=== PATIENT | male | born 1985 | race Caucasian/White ===

== ENCOUNTER 2017-02-02 15:20 | Emergency (ER) | payer OTHER ==
--- NOTE | 2017-02-02 16:43 | ER Document Report ---
ED Cardiac - General Chief Complaint: Chest Pain Stated Complaint: CHEST PAIN,LEFT ARM PAIN,DIZZY Time Seen by Provider: 02/02/17 16:41 Notes: The patient is a 31-year-old male, past medical history current smoker, bipolar , presents with 8 months of intermittent left anterior chest wall pain is worse when he wakes up or when he extends his shoulders. He recently obtained insurance and his family members told him to go to the emergency room multiple times over the past several months. Patient denies any current chest pain. In addition, over several months, he is having intermittent lightheadedness and notices a small amount of blood in his stool when he has hard bowel movements. He does not have any lightheadedness or blood in stool at this time. He also will feel a cramping sensation in his left arm that is not related to chest pain. He denies fevers, current chest pain, shortness of breath, leg swelling, hemoptysis, back pain, nausea, vomiting, leg swelling or abdominal pain. TRAVEL OUTSIDE OF THE [place] IN LAST 30 DAYS: No - Related Data Allergies/Adverse Reactions: No Known Allergies Allergy (Verified 02/02/17 15:23) Past Medical History - General Information source: Patient - Social History Smoking Status: Current Every Day Smoker Chew tobacco use (# tins/day): No Drug Abuse: None Family History: Reviewed & Not Pertinent Patient has suicidal ideation: No Patient has homicidal ideation: No Renal/ Medical History: Denies: Hx Peritoneal Dialysis Psychiatric Medical History: Reports: Hx Attention Deficit Hyperactivity Disorder, Hx Bipolar Disorder - Immunizations Hx Diphtheria, Pertussis, Tetanus Vaccination: Yes Review of Systems - Review of Systems Notes: REVIEW OF SYSTEMS: CONSTITUTIONAL: -fevers, -chills EENT: -eye pain, -difficulty swallowing, -nasal congestion CARDIOVASCULAR: +chest pain, -syncope. RESPIRATORY: -cough, -SOB GASTROINTESTINAL: -abdominal pain, -nausea, -vomiting, -diarrhea GENITOURINARY: -dysuria, -hematuria MUSCULOSKELETAL: -back pain, -neck pain SKIN: -rash or skin lesions. HEMATOLOGIC: -easy bruising or bleeding. LYMPHATIC: -swollen, enlarged glands. NEUROLOGICAL: -altered mental status or loss of consciousness, -headache, - neurologic symptoms PSYCHIATRIC: -anxiety, -depression. ALL OTHER SYSTEMS REVIEWED AND NEGATIVE. Physical Exam - Vital signs Vitals: Temp Pulse Resp BP Pulse Ox 97.8 F 81 20 175/125 H 98 02/02/17 15:39 02/02/17 15:39 02/02/17 15:39 02/02/17 15:39 02/02/17 15:39 - Notes Notes: PHYSICAL EXAMINATION: GENERAL: Well-appearing, well-nourished and in no acute distress. HEAD: Atraumatic, normocephalic. EYES: Pupils equal round and reactive to light, extraocular movements intact, sclera anicteric, conjunctiva are normal. ENT: nares patent, oropharynx clear without exudates. Moist mucous membranes. NECK: Normal range of motion, supple without lymphadenopathy LUNGS: Breath sounds clear to auscultation bilaterally and equal. No wheezes rales or rhonchi. HEART: Regular rate and rhythm without murmurs. Tenderness over left anterior lower chest wall. ABDOMEN: Soft, nontender, normoactive bowel sounds. No guarding, no rebound. No masses appreciated. EXTREMITIES: Normal range of motion, no pitting or edema. No cyanosis. NEUROLOGICAL: Cranial nerves grossly intact. Normal speech, normal gait. Normal sensory, motor, and reflex exams. PSYCH: Normal mood, normal affect. SKIN: Warm, Dry, normal turgor, no rashes or lesions noted. Course - Re-evaluation Re-evalutation: Pt has HEART score of 3. 2 sets of troponins are 0.04. His EKG shows lateral T- wave inversions. Chest pain-free and his symptoms are atypical for ACS. Symptoms also atypical for PE and aortic dissection. 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 Given strict return precautions and he understands. - Vital Signs Vital signs: Temp Pulse Resp BP Pulse Ox 97.8 F 59 L 13 144/97 H 98 02/02/17 15:41 02/02/17 15:41 02/02/17 18:01 02/02/17 18:01 02/02/17 18:01 - Laboratory Result Diagrams: 02/02/17 17:15 02/02/17 17:15 Laboratory results interpreted by me: 02/02/17 17:15 NT-Pro-B Natriuret Pep 1020 H - Diagnostic Test Radiology reviewed: Image reviewed, Reports reviewed - EKG Interpretation by Me EKG shows normal: Sinus rhythm, [place], Intervals [place]/QRS: IVCD Voltage: Consistant with LVH Additional EKG results interpreted by me: Lateral T-wave inversions Discharge - Discharge Clinical Impression: Chest pain Qualifiers: Chest pain type: unspecified Qualified Code(s): R07.9 - Chest pain, unspecified Condition: Good Disposition: HOME, SELF-CARE Additional Instructions: Your EKG is not normal, but you have no evidence of an active heart attack at this time. You must follow-up with the primary care physician for further evaluation and treatment. CHEST PAIN OF UNCLEAR CAUSE: The exact cause of your chest pain isn't clear. Fortunately, there is no evidence of a dangerous medical condition. Further testing may be required to find the source of the pain. Most often, we find that this pain is coming from the chest wall -- the muscles or rib joints in the chest. But chest pain can come from the lung and lung lining, the esophagus, the heart valves or heart lining, and even the stomach or gallbladder. Rest. Eat lightly until the pain is gone. We may prescribe medicine for pain and inflammation. You should call the physician immediately if the pain radiates to the shoulder, jaw or arms; if you start to run a fever or develop a cough; or if you develop shortness of breath, or other new or alarming symptoms. NORMAL EXAM AND WORKUP: At this time, your examination and workup show no significant abnormality. No significant abnormal physical findings were noted. All laboratory, EKG, and imaging (x-ray, CT scans, ultrasound) studies that were ordered show no significant abnormality. Although your examination and all studies that were ordered showed no significant abnormal finding, there are no examinations and no studies that are 100% accurate. There is always the possibility that some abnormality could exist and not be detected with physical examination or within the limits and capabilities of laboratory and other studies. You should return or follow up as you were instructed on your visit today for further evaluation if your symptoms do not resolve. CHEST WALL PAIN: Your chest pain may be coming from the chest wall. This is often caused by straining the muscles or joints in the chest during physical activity, direct trauma, coughing, or vigorous vomiting. Persons with arthritis are especially prone to this type of pain, due to inflammation of the cartilage joints near the breast bone. Occasionally, no cause can be found. Rest from strenuous physical activity. This kind of chest pain is usually made worse by movement of the chest. Depending on the symptoms, we may prescribe medicine for pain, muscle relaxation, and antiinflammatory effects. If the pain is new, and seems to be due to muscle strain, cold packs can help. Otherwise, apply gentle warmth to the painful area for 15 minutes every hour or two. You should call contact the doctor immediately if things change. Further evaluation is needed if you develop a fever or cough, if the nature of the pain changes, or if you become short of breath. ANGINA EPISODE: Your physician has diagnosed the pain you experienced as an episode of angina. Angina occurs when a portion of the heart muscle temporarily lacks oxygen. It does not cause any permanent heart damage, but serves as a warning. Hospitalization is not necessary now. Evaluation of your cardiac condition , and medical therapy for angina will be necessary. It's important you be sure to keep all appointments and take medication exactly as prescribed. Angina is usually treated with a type of "nitrate" medication. This is available as ointment, pills, or sublingual (under the tongue) tablets. Depending on your clinical situation, other medications may be added to help control angina. These may include beta blockers or calcium blockers. If episodes of angina are occurring with increased frequency, or if chest pain lasts longer than 15 minutes or does not respond to nitroglycerin, you must seek emergency medical care immediately. ACID REFLUX DISEASE (GERD): Gastro-Esophageal Reflux Disease (GERD) is caused by stomach acid refluxing back up into the esophagus. The valve at the end of the esophagus may be weak. This is common in persons with a hiatal hernia. GERD symptoms can include indigestion, chest pain, heartburn, or food "sticking." Certain foods, alcohol, and aspirin can make GERD worse. Treatment depends on the severity. Usually, antacids or acid-suppressing medicines are used. When the esophagus is acutely inflamed, the physician will often prescribe membrane-protective drugs such as Carafate. Some patients benefit from medication such as Reglan that tightens the valve at the top of the stomach. Avoid those foods that bring on your symptoms. For many people, these foods are coffee, chocolate, onions, garlic, and carbonated drinks. Don't use alcohol, aspirin, caffeine, or tobacco. Don't eat late at night -- within 4 hours of bedtime. Don't over-eat. If necessary, elevate the head of your bed about 4 inches so that stomach acid will not roll up into your esophagus. Call the doctor if you develop severe chest pain, inability to swallow fluids, fever, or worsening symptoms. FOLLOW-UP CARE: If you have been referred to a physician for follow-up care, call the physician s office for an appointment as you were instructed or within the next two days. If you experience worsening or a significant change in your symptoms, notify the physician immediately or return to the Emergency Department at any time for re-evaluation. Referrals: SIDNEY MUSA MD [ACTIVE STAFF] - Follow up as needed CELIA CLARK MD [COMMUNITY BASED STAFF] - Follow up as needed
[2017-02-02 17:23] LABS: ABSOLUTE BASOPHILS # (AUTO) 0.1 10^3/uL (0.0-0.2); ABSOLUTE EOSINOPHILS # (AUTO) 0.4 10^3/uL (0.0-0.6); ABSOLUTE LYMPHOCYTES (AUTO) 3.1 10^3/uL (0.5-4.7); ABSOLUTE MONOCYTES (AUTO) 0.8 10^3/uL (0.1-1.4); ABSOLUTE NEUT (AUTO) 6.2 10^3/uL (1.7-8.2); EOSINOPHILS % (AUTO) 3.3 % (0-6); HEMATOCRIT 45.5 % (37.9-51.0); HEMOGLOBIN 15.5 g/dL (13.5-17.0); MEAN CORPUSCULAR HEMOGLOBIN 28.9 pg (27.0-33.4); MEAN CORPUSCULAR VOLUME 85 fl (80-97); MONOCYTES % (AUTO) 7.9 % (3-13); RED BLOOD COUNT 5.35 10^6/uL (4.35-5.55); RED CELL DISTRIBUTION WIDTH 12.9 % (11.5-14.0); SEGMENTED NEUTROPHILS % (AUTO) 58.8 % (42-78); WHITE BLOOD COUNT 10.5 10^3/uL (4.0-10.5)
[2017-02-02 17:37] LABS: ALANINE AMINOTRANSFERASE 34 U/L (21-72); ALBUMIN 4.6 g/dL (3.5-5.0); ALKALINE PHOSPHATASE 86 U/L (38-126); ANION GAP 12 (5-19); ASPARTATE AMINO TRANSFERASE 23 U/L (17-59); BILIRUBIN,DIRECT 0.4 mg/dL (0.0-0.4); BILIRUBIN,TOTAL 0.6 mg/dL (0.2-1.3); BLOOD UREA NITROGEN 12 mg/dL (7-20); CARBON DIOXIDE 25 mmol/L (22-30); CHLORIDE 106 mmol/L (98-107); CREATINE KINASE 106 U/L (55-170); CREATININE RESULT 0.95 mg/dL (0.52-1.25); GLUCOSE 90 mg/dL (75-110); LIPASE 44.7 U/L (23-300); SODIUM 142.7 mmol/L (137-145); TOTAL PROTEIN 7.5 g/dL (6.3-8.2)
[2017-02-02 17:51] LABS: TROPONIN I 0.042 ng/mL
[2017-02-02 20:45] VITALS: BP 154/94
--- NOTE | 2017-02-03 07:13 | EKG REPORT ---
SEVERITY:- ABNORMAL ECG - SINUS RHYTHM LVH WITH IVCD AND SECONDARY REPOL ABNRM INFERIOR INFARCT, AGE INDETERMINATE : Confirmed by: Raine Ross MD 03-Feb-2017 07:12:12
== END 2017-02-02 20:50 | disposition home or self-care (01) ==
LOC: ER 15:20
DX: R07.89 Other chest pain (principal); I45.9 Conduction disorder, unspecified; R42 Dizziness and giddiness; M79.602 Pain in left arm; K92.1 Melena; F17.200 Nicotine dependence, unspecified, uncomplicated
CPT/HCPCS: 36415; 71010; 80048; 80076; 82550; 83690; 83880; 84484; 85025; 93005; 93010; 99285

== ENCOUNTER 2017-10-16 12:49 | Emergency (ER) | payer OTHER ==
[2017-10-16] MEDS ORDERED: KETOROLAC TROMETHAMINE 60 MG/2 ML SDV IM ONE (15:02)
--- NOTE | 2017-10-16 15:12 | ER Document Report ---
ED Fall - General Mode of Arrival: Ambulatory Information source: Patient TRAVEL OUTSIDE OF THE [place] IN LAST 30 DAYS: No - HPI Occurred: Yesterday Context: Tripped Location of injury/pain: Elbow, Hip, Shoulder - General Chief Complaint: Fall Stated Complaint: FALL/RIGHT SIDE PAIN Time Seen by Provider: 10/16/17 15:02 Notes: Patient is a 32 year old male with 3 cardiac stents presents to the emergency department complaining of a right hip, shoulder, and elbow pain secondary to a mechanical fall onset last night. Patient states that he fell down a numerous amount of stairs. At bedside, patient is able to ambulate around the room. (INDIA BURKS) - Related data Allergies/Adverse Reactions: No Known Allergies Allergy (Verified 02/02/17 15:23) Past Medical History - General Information source: Patient - Social History Smoking Status: Current Every Day Smoker Chew tobacco use (# tins/day): No Frequency of alcohol use: None Drug Abuse: None Family History: Reviewed & Not Pertinent Patient has suicidal ideation: No Patient has homicidal ideation: No Psychiatric Medical History: Reports: Hx Attention Deficit Hyperactivity Disorder, Hx Bipolar Disorder Past Surgical History: Reports: Hx Cardiac Catheterization - 3 stents - Immunizations Hx Diphtheria, Pertussis, Tetanus Vaccination: Yes Review of Systems - Review of Systems Constitutional: No symptoms reported EENT: No symptoms reported Cardiovascular: No symptoms reported Respiratory: No symptoms reported Gastrointestinal: No symptoms reported Genitourinary: No symptoms reported Male Genitourinary: No symptoms reported Musculoskeletal: See HPI Skin: No symptoms reported Hematologic/Lymphatic: No symptoms reported Neurological/Psychological: No symptoms reported -: Yes All other systems reviewed and negative Physical Exam - Vital signs Vitals: Temp Pulse Resp BP Pulse Ox 98.7 F 84 20 142/91 H 99 10/16/17 13:03 10/16/17 13:03 10/16/17 13:03 10/16/17 13:03 10/16/17 13:03 - Notes Notes: GENERAL: Alert, interacts well. No acute distress. HEAD: Normocephalic, atraumatic. EYES: Pupils equal, round, and reactive to light. Extraocular movements intact. ENT: Oral mucosa moist, tongue midline. NECK: Full range of motion. Supple. Trachea midline. LUNGS: Clear to auscultation bilaterally, no wheezes, rales, or rhonchi. No respiratory distress. HEART: Regular rate and rhythm. No murmurs, gallops, or rubs. ABDOMEN: Soft, non-tender. Non-distended. Bowel sounds present in all 4 quadrants. EXTREMITIES: Moves all 4 extremities spontaneously. Able to ambulate. Hips stable. Crepitus to the right shoulder. NEUROLOGICAL: Alert and oriented x3. Normal speech. PSYCH: Normal affect, normal mood. SKIN: Warm, dry, normal turgor. No rashes or lesions noted. BACK: No bruising. Tender to palpation to the right lumbar paraspinal muscles. (INDIA BURKS) Course - Re-evaluation Re-evalutation: 10/16/17 15:49 No acute findings on hip x-ray. Patient able to ambulate. Full range of motion of elbow and shoulder with mild crepitus right shoulder but no findings consistent with fracture or dislocation. Will provide anti-inflammatories instructions for patient to follow-up with community clinic or primary care physician if symptoms were continued after 1 week for further reevaluation. ( VIVIAN MENDOZA) - Vital Signs Vital signs: Temp Pulse Resp BP Pulse Ox 98.4 F 69 20 154/101 H 98 10/16/17 16:13 10/16/17 16:13 10/16/17 13:03 10/16/17 16:13 10/16/17 16:13 Discharge - Discharge Clinical Impression: Fall (on) (from) other stairs and steps, initial encounter, Hip pain, right, Right elbow pain Right shoulder strain Qualifiers: Encounter type: initial encounter Qualified Code(s): S46.911A - Strain of unspecified muscle, fascia and tendon at shoulder and upper arm level, right arm , initial encounter Condition: Good Disposition: HOME, SELF-CARE Instructions: Muscle Strain ([facility]), Shoulder Injury ([facility]), Tendon Strain ([facility]) Prescriptions: Naproxen [Naprosyn] 500 mg PO BID #60 tablet Forms: Return to Work Referrals: CUCO ALVAREZ MD [Primary Care Provider] - Follow up as needed Scribe Attestation: 10/18/17 23:04 I personally performed the services described documentation, reviewed and edited the documentation which was dictated to describe my presence, and it accurately records my words and actions. (LONG,VIVIAN H) Scribe Documentation - Scribe Written by Demetrius:: Demetrius June, 10/16/2017 15:12 acting as scribe for :: Ulises
--- NOTE | 2017-10-16 15:41 | RADIOLOGY REPORT (SQ) ---
EXAM DESCRIPTION: HIP RIGHT AP/LATERAL COMPLETED DATE/TIME: 10/16/2017 3:32 pm REASON FOR STUDY: R hip pain COMPARISON: None. NUMBER OF VIEWS: Two views. TECHNIQUE: AP pelvis and additional frog-leg view of the right hip. LIMITATIONS: None. FINDINGS: MINERALIZATION: Normal. RIGHT HIP: No fracture or dislocation. No worrisome bone lesions. LEFT HIP: No fracture or dislocation. No worrisome bone lesions. PUBIS AND ISCHIUM: No fracture. PELVIS: No fracture. SACRUM: No fracture or dislocation. No worrisome bone lesions. LOWER LUMBAR SPINE: No fracture or dislocation. No worrisome bone lesions. No significant disc disea se. SOFT TISSUES: No findings. OTHER: No other significant finding. IMPRESSION: NEGATIVE STUDY OF THE RIGHT HIP. NO RADIOGRAPHIC EVIDENCE OF ACUTE INJURY. TECHNICAL DOCUMENTATION: JOB ID: [id number] [employer]- All Rights Reserved
[2017-10-16 16:14] VITALS: BP 154/101
== END 2017-10-16 16:14 | disposition home or self-care (01) ==
LOC: ER 12:49
DX: S46.911A Strain of unspecified muscle, fascia and tendon at shoulder and upper arm level, right arm, initial encounter (principal); M25.551 Pain in right hip; M25.511 Pain in right shoulder; M25.521 Pain in right elbow; W10.9XXA Fall (on) (from) unspecified stairs and steps, initial encounter; F17.200 Nicotine dependence, unspecified, uncomplicated
CPT/HCPCS: 99283; 96372; 73502; J1885

== ENCOUNTER 2019-02-25 08:39 | Emergency (ER) | payer SELFPAY ==
--- NOTE | 2019-02-25 08:56 | ER Document Report ---
ED Respiratory Problem - General Chief Complaint: Shortness Of Breath Stated Complaint: CHEST PAIN Time Seen by Provider: 02/25/19 08:55 Primary Care Provider: CUCO ALVAREZ MD [Primary Care Provider] - Follow up as needed Notes: 33-year-old male the emergency department chief complaint of not feeling well. Patient has a long-standing history of heart problems. Was a heavy cocaine user. Damage his heart. Has 3 stents. Recently has been having bright red blood per rectum. On Brilinta but ran out yesterday. States that he is short of breath with ambulation. Followed by Dr. Boland with [facility]. Scheduled to have a defibrillator placed by Dr. Ledy Ring. Currently he denies any chest pain just feels very tired and short of breath TRAVEL OUTSIDE OF THE [place] IN LAST 30 DAYS: No - HPI Patient complains to provider of: Short of breath Onset: Yesterday Duration: Continuous Quality of pain: No pain Severity: Moderate Pain Level: Denies Context: Hx CHF Short of Breath: Moderate Associated symptoms: None - Related Data Allergies/Adverse Reactions: No Known Allergies Allergy (Verified 02/25/19 08:41) Past Medical History - General Information source: Patient - Social History Smoking Status: Current Every Day Smoker Frequency of alcohol use: None Drug Abuse: Cocaine Lives with: Family Family History: Reviewed & Not Pertinent - Medical History Notes: Past medical history significant for coronary artery disease, 3 stents, heart failure, drug abuse, hyperlipidemia, hypertension Renal/ Medical History: Denies: Hx Peritoneal Dialysis Psychiatric Medical History: Reports: Hx Attention Deficit Hyperactivity Disorder, Hx Bipolar Disorder Past Surgical History: Reports: Hx Cardiac Catheterization - 3 stents - Immunizations Hx Diphtheria, Pertussis, Tetanus Vaccination: Yes Review of Systems - Review of Systems Notes: Constitutional: denies: Chills, Diaphoresis, Fever, +Malaise, +Weakness EENT: denies: Eye discharge, Blurred vision, Tearing, Double vision, Nose congestion, Nose discharge, Throat swelling, Mouth pain Cardiovascular: denies: Palpitations, Heart racing, Orthopnea, +Dyspnea, -Chest pain Respiratory: denies: Cough, Hurts to breathe, Wheezing, +Shortness of breath Gastrointestinal: denies: Abdominal pain, Diarrhea, Nausea, Vomiting, Black stools,+ bright red blood in stool Genitourinary: denies: Burning, Dysuria, Discharge, Frequency, Flank pain, Hematuria Musculoskeletal: denies: Joint pain, Joint swelling, Muscle pain, Muscle stiffness, back pain Hematologic/Lymphatic: denies: Anemia, Easy bleeding, Easy bruising, Blood clots Neurological/Psychological: denies: Confusion, Dementia, Depression, Loss of consciousness Skin: No lesions, no masses, no skin breakdown, no abscesses Physical Exam - Vital signs Vitals: Pulse Ox 97 02/25/19 08:50 Interpretation: Normal - General General appearance: Appears well, Alert - HEENT Head: Normocephalic, Atraumatic Eyes: Normal Pupils: PERRL - Respiratory Respiratory status: No respiratory distress Chest status: Nontender Breath sounds: Normal Chest palpation: Normal - Cardiovascular Rhythm: Tachycardia Heart sounds: Normal auscultation Murmur: No - Abdominal Inspection: Normal Distension: No distension Bowel sounds: Normal Tenderness: Nontender Organomegaly: No organomegaly - Back Back: Normal, Nontender - Extremities General upper extremity: Normal inspection, Nontender, Normal color, Normal ROM, Normal temperature General lower extremity: Normal inspection, Nontender, Edema - Trace edema, Normal color, Normal ROM, Normal temperature, Normal weight bearing. No: Chiara's sign - Neurological Neuro grossly intact: Yes Cognition: Normal Orientation: AAOx4 Antonio Coma Scale Eye Opening: Spontaneous [address] Coma Scale Verbal: Oriented [address] Coma Scale Motor: Obeys Commands [address] Coma Scale Total: 15 Speech: Normal Motor strength normal: LUE, RUE, LLE, RLE Sensory: Normal - Psychological Associated symptoms: Normal affect, Normal mood - Skin Skin Temperature: Warm Skin Moisture: Dry Skin Color: Normal Course - Re-evaluation Re-evalutation: 02/25/19 10:12 Laboratory 02/25/19 02/25/19 02/25/19 08:59 08:59 08:59 WBC 12.4 H RBC 4.94 Hgb 14.4 Hct 42.3 MCV 86 MCH 29.2 MCHC 34.0 RDW 13.5 Plt Count 184 Seg Neutrophils % 70.7 Lymphocytes % 18.9 Monocytes % 8.1 Eosinophils % 1.4 Basophils % 0.9 Absolute Neutrophils 8.7 H Absolute Lymphocytes 2.3 Absolute Monocytes 1.0 Absolute Eosinophils 0.2 Absolute Basophils 0.1 PT 13.6 INR 0.99 APTT Sodium 140.0 Potassium 4.4 Chloride 109 H Carbon Dioxide 20 L Anion Gap 11 BUN 12 Creatinine 0.94 Est GFR ( Amer) > 60 Est GFR (Non-Af Amer) > 60 Glucose 99 Calcium 10.0 Total Bilirubin 0.8 Direct Bilirubin 0.4 Neonat Total Bilirubin Not Reportable Neonat Direct Bilirubin Not Reportable Neonat Indirect Bili Not Reportable AST 40 ALT 53 Alkaline Phosphatase 72 Creatine Kinase 117 CK-MB (CK-2) Troponin I NT-Pro-B Natriuret Pep Total Protein 6.9 Albumin 4.3 POC Stool Occult Blood Blood Type Antibody Screen 02/25/19 02/25/19 02/25/19 08:59 08:59 08:59 WBC RBC Hgb Hct MCV MCH MCHC RDW Plt Count Seg Neutrophils % Lymphocytes % Monocytes % Eosinophils % Basophils % Absolute Neutrophils Absolute Lymphocytes Absolute Monocytes Absolute Eosinophils Absolute Basophils PT Cancelled INR Cancelled APTT 32.6 Sodium Potassium Chloride Carbon Dioxide Anion Gap BUN Creatinine Est GFR ( Amer) Est GFR (Non-Af Amer) Glucose Calcium Total Bilirubin Direct Bilirubin Neonat Total Bilirubin Neonat Direct Bilirubin Neonat Indirect Bili AST ALT Alkaline Phosphatase Creatine Kinase CK-MB (CK-2) 1.78 Troponin I 1.870 NT-Pro-B Natriuret Pep 7910 H Total Protein Albumin POC Stool Occult Blood Blood Type Antibody Screen 02/25/19 02/25/19 09:13 09:20 WBC RBC Hgb Hct MCV MCH MCHC RDW Plt Count Seg Neutrophils % Lymphocytes % Monocytes % Eosinophils % Basophils % Absolute Neutrophils Absolute Lymphocytes Absolute Monocytes Absolute Eosinophils Absolute Basophils PT INR APTT Sodium Potassium Chloride Carbon Dioxide Anion Gap BUN Creatinine Est GFR ( Amer) Est GFR (Non-Af Amer) Glucose Calcium Total Bilirubin Direct Bilirubin Neonat Total Bilirubin Neonat Direct Bilirubin Neonat Indirect Bili AST ALT Alkaline Phosphatase Creatine Kinase CK-MB (CK-2) Troponin I NT-Pro-B Natriuret Pep Total Protein Albumin POC Stool Occult Blood POSITIVE Blood Type O POSITIVE Antibody Screen NEGATIVE Chest X-Ray 02/25/19 00:00 IMPRESSION: 1. Borderline cardiomegaly. Mild prominence of the pulmonary vasculature may represent congestion. 2. Mild prominence of the interstitial markings in the mid and lower lungs, may be on the basis of edema. Patient with elevated cardiac troponin. Shortness of breath. EKG shows signs of ischemia. Non-ST elevation. Troponin is grossly elevated at 1.8. This is changed from prior. Significant history of NC with 3 stents. Patient states th at he has not had any blood thinners today however he took them yesterday. Having GI bleeding as well. Bright red blood per rectum. No gastroenterology is available at our facility. Consulted with the precision lens grinder Dr. Ross who recommends transfer based on this grossly elevated troponin and strong history of NC and stents. Giving aspirin. Holding on blood thinners due to the GI bleeding. H&H are within normal limits however expect that this is mildly volume contracted. Giving Lasix. Consulting with transfer center at this time for potential urgent transfer. 02/25/19 11:00 [facility] has returned my call. Patient still asymptomatic other than shortness of breath. Denies chest pain. Aspirin given. Beta-adrienne given as heart rate was in the 100s. Lasix given. 02/25/19 11:29 Patient has been accepted to [facility]. Will place some nitroglycerin paste on the patient. I have ordered 80 of Lipitor as well. Anticipating transfer shortly. - Vital Signs Vital signs: Temp Pulse Resp BP Pulse Ox 98.3 F 68 16 125/80 97 02/25/19 09:15 02/25/19 14:12 02/25/19 14:12 02/25/19 14:12 02/25/19 14:12 - Laboratory Result Diagrams: 02/25/19 08:59 02/25/19 08:59 Laboratory results interpreted by me: 02/25/19 02/25/19 02/25/19 08:59 08:59 08:59 WBC 12.4 H Absolute Neutrophils 8.7 H Chloride 109 H Carbon Dioxide 20 L NT-Pro-B Natriuret Pep 7910 H - EKG Interpretation by Fl EKG shows normal: Sinus rhythm, Coy, Intervals, QRS Complexes. abnormal: ST-T Waves - st depression anterior/inferior leads. T wave inversions V5, V6, V3, aVF. No significant change from prior EKG. Critical Care Note - Critical Care Note Total time excluding time spent on procedures (mins): 60 Comments: Non-ST segment elevation NC, elevated troponin, consultation with specialist, coordination of transfer Discharge - Discharge Clinical Impression: Non-ST elevation NC (NSTEMI) Congestive heart failure (CHF) Qualifiers: Heart failure type: unspecified Heart failure chronicity: unspecified Qualified Code(s): I50.9 - Heart failure, unspecified GI bleed Qualifiers: GI bleed type/associated pathology: unspecified gastrointestinal hemorrhage type Qualified Code(s): K92.2 - Gastrointestinal hemorrhage, unspecified Condition: Serious Disposition: [facility] Referrals: CUCO ALVAREZ MD [Primary Care Provider] - Follow up as needed
[2019-02-25 09:08] LABS: ABSOLUTE BASOPHILS # (AUTO) 0.1 10^3/uL (0.0-0.2); ABSOLUTE EOSINOPHILS # (AUTO) 0.2 10^3/uL (0.0-0.6); ABSOLUTE LYMPHOCYTES (AUTO) 2.3 10^3/uL (0.5-4.7); ABSOLUTE NEUT (AUTO) 8.7 10^3/uL (1.7-8.2); BASOPHILS % (AUTO) 0.9 % (0-2); EOSINOPHILS % (AUTO) 1.4 % (0-6); HEMATOCRIT 42.3 % (37.9-51.0); HEMOGLOBIN 14.4 g/dL (13.5-17.0); LYMPHOCYTES % (AUTO) 18.9 % (13-45); MEAN CORPUSCULAR HEMOGLOBIN 29.2 pg (27.0-33.4); MEAN CORPUSCULAR VOLUME 86 fl (80-97); MONOCYTES % (AUTO) 8.1 % (3-13); PLATELET COUNT 184 10^3/uL (150-450); RED BLOOD COUNT 4.94 10^6/uL (4.35-5.55); RED CELL DISTRIBUTION WIDTH 13.5 % (11.5-14.0); SEGMENTED NEUTROPHILS % (AUTO) 70.7 % (42-78); TOTAL CELLS COUNTED % (AUTO) 100 %; WHITE BLOOD COUNT 12.4 10^3/uL (4.0-10.5)
[2019-02-25 09:17] LABS: INTERNATIONAL RATION (INR) 0.99; PROTHROMBIN TIME 13.6 SEC (11.4-15.4)
[2019-02-25 09:38] LABS: ALANINE AMINOTRANSFERASE 53 U/L (21-72); ALBUMIN 4.3 g/dL (3.5-5.0); ALKALINE PHOSPHATASE 72 U/L (38-126); ANION GAP 11 (5-19); ASPARTATE AMINO TRANSFERASE 40 U/L (17-59); BILIRUBIN,DIRECT 0.4 mg/dL (0.0-0.4); BILIRUBIN,TOTAL 0.8 mg/dL (0.2-1.3); BLOOD UREA NITROGEN 12 mg/dL (7-20); CARBON DIOXIDE 20 mmol/L (22-30); CHLORIDE 109 mmol/L (98-107); CREATINE KINASE 117 U/L (55-170); GLUCOSE 99 mg/dL (75-110); POTASSIUM 4.4 mmol/L (3.6-5.0); TOTAL PROTEIN 6.9 g/dL (6.3-8.2)
--- NOTE | 2019-02-25 09:41 | RADIOLOGY REPORT (SQ) ---
EXAM DESCRIPTION: CHEST 2 VIEWS COMPLETED DATE/TIME: 02/25/2019 9:19 am REASON FOR STUDY: Chest Pain COMPARISON: None. EXAM PARAMETERS: NUMBER OF VIEWS: two views TECHNIQUE: Digital Frontal and Lateral radiographic views of the chest acquired. RADIATION DOSE: NA LIMITATIONS: none FINDINGS: LUNGS AND PLEURA: Mild prominence of the interstitial markings in the mid and lower lungs , may be on the basis of edema. No pneumothorax or pleural effusion. MEDIASTINUM AND HILAR STRUCTURES: No masses or contour abnormalities. HEART AND VASCULAR STRUCTURES: Borderline cardiomegaly. Mild prominence of the pulmonary vasculatur e may represent congestion. BONES: No acute findings. HARDWARE: External hardware overlying the lower chest wall obscures detail somewhat. OTHER: No other significant finding. IMPRESSION: 1. Borderline cardiomegaly. Mild prominence of the pulmonary vasculature may represent congestion. 2. Mild prominence of the interstitial markings in the mid and lower lungs, may be on the basis of e diana. TECHNICAL DOCUMENTATION: JOB ID: [id number] [employer]- All Rights Reserved Reading location - IP/workstation name: [email or web address]
[2019-02-25 09:51] LABS: CREATINE KINASE MB 1.78 ng/mL (<4.55)
[2019-02-25 09:53] LABS: TROPONIN I 1.87 ng/mL
[2019-02-25] MEDS ORDERED: ASPIRIN 81 MG TABLET, CHEWABLE PO ONE (10:02)
[2019-02-25] MEDS ORDERED: FUROSEMIDE INJ/PF 40 MG/4 ML SDV IV ONE (10:02)
[2019-02-25] MEDS ORDERED: METOPROLOL TARTRATE PF/INJ 5 MG/5 ML SDV IV ONE (10:11)
[2019-02-25] MEDS ORDERED: PANTOPRAZOLE SODIUM 40 MG VIAL IV ONE (10:15)
[2019-02-25] MEDS ORDERED: ATORVASTATIN CALCIUM 80 MG TABLET PO ONE (11:27)
[2019-02-25] MEDS ORDERED: NITROGLYCERIN 2% OINTMENT 1 GM PACKET TP ONE (11:28)
--- NOTE | 2019-02-25 13:16 | EKG REPORT ---
SEVERITY:- ABNORMAL ECG - SINUS TACHYCARDIA LEFT ATRIAL ABNORMALITY NONSPECIFIC INTRAVENTRICULAR CONDUCTION DELAY INFERIOR INFARCT, AGE INDETERMINATE CONSIDER ANTERIOR INFARCT AGE UNDETERMINED. (NOTE V3, V4) CLINICAL CORRELATION NEEDED. : Confirmed by: Zi Feliciano MD 25-Feb-2019 13:15:32
[2019-02-25 15:15] VITALS: BP 126/80
== END 2019-02-25 15:15 | disposition short-term general hospital (02) ==
LOC: ER 08:39
DX: I21.4 Non-ST elevation (NSTEMI) myocardial infarction (principal); I50.9 Heart failure, unspecified; K92.2 Gastrointestinal hemorrhage, unspecified; R07.9 Chest pain, unspecified; R06.02 Shortness of breath; R00.0 Tachycardia, unspecified; I25.10 Atherosclerotic heart disease of native coronary artery without angina pectoris; I11.0 Hypertensive heart disease with heart failure
CPT/HCPCS: 93005; 99285; 96374; 96375; 86900; 86901; 36415; 82553; 86850; 82550; 85025; 85610; 85730; 80053; 84484; 83880; 71046; 93010; J1940; J3490; S0164